=== PATIENT | male | born 1990 | race Caucasian/White ===

== ENCOUNTER 2020-11-29 10:35 | Day surgery (SDC) | payer OTHER ==
[~2020-11-29] VITALS: Ht 175.3 cm; Wt 94.2 kg
[2020-11-29] MEDS ORDERED: PROPOFOL 10 MG/ML, 20ML ONE (11:42)
--- NOTE | 2020-11-29 11:48 | NUR ---
PROCEDURAL SEDATION SET UP IN ROOM . PT PLACED ON ALL MONITORING EQUIPMENT MD AT BEDSIDE. REFER TO SEDATION PACKET FOR INTRAPROCEDURE INFO.
[2020-11-29] MEDS ORDERED: MIDAZOLAM 1 MG/ML, 2ML ONE ×2 (11:58→17:04)
[2020-11-29] MEDS ORDERED: FENTANYL PF 100 MCG/2ML ONE (11:58)
--- NOTE | 2020-11-29 12:14 | NUR ---
DURING INITIAL SEDATION PT EXPERIENCE UNDISIRED REACTION TO PROPOFOL OF MYOCLONIS. PT RECOVERED PARTIALLY FROM PROPOFOL AND ADMIN OF VERSED INITIATED AT MD REQUEST. DESPITE 2 ATTEMPTS TO RETRIEVE OBJECT MD WAS UNSUCCESSFUL. PT TO BE RECOVERED AND SURGERY WAS PAGED.
[2020-11-29] MEDS ORDERED: MIDAZOLAM 1 MG/ML, 2ML IVPush ONE (13:00)
[2020-11-29] MEDS ORDERED: PROPOFOL 10 MG/ML, 20ML IVPush ONE (13:00)
--- NOTE | 2020-11-29 13:02 | NUR ---
PT READY FOR SURGERY. PT HAS BEEN NPO SINCE 9 AM THIS MORNING. [employer] FOR BREAKFAST
--- NOTE | 2020-11-29 13:05 | NUR ---
PREVIOUS NOTE MADE BY THIS RN
[2020-11-29] MEDS ORDERED: D5%-0.45NACL+KCL 20MEQ 1,000 ML IV SCH ×2 (13:30)
--- NOTE | 2020-11-29 14:12 | NUR ---
ASSUMED CARE FROM [facility]. PT RESTING IN [facility] AT [facility] TIME, MONITORING IN PLACE. PT REPORTS NO NEEDS, WILL CONTINUE TO MONITOR.
[2020-11-29 15:43] VITALS: BP 109/66
--- NOTE | 2020-11-29 15:43 | NUR ---
PT RESTING IN [facility] AT THIS TIME, MONITORING IN PLACE.
[2020-11-29] MEDS ORDERED: FENTANYL PF 250 MCG/5ML ONE (17:04)
[2020-11-29] MEDS ORDERED: PROPOFOL 50 ML ONE (17:04)
[2020-11-29] MEDS ORDERED: ONDANSETRON 2MG/ML, 2ML ONE (17:53)
[2020-11-29] MEDS ORDERED: ROCURONIUM 10MG/ML,5ML ONE (17:53)
[2020-11-29] MEDS ORDERED: SUCCINYLCHOLINE 20 MG/ML, 10ML ONE (17:53)
[2020-11-29] MEDS ORDERED: DEXAMETHASONE 4 MG/ML, 1ML ONE (17:53)
[2020-11-29] MEDS ORDERED: SUGAMMADEX 200 MG/2 ML IVPush ONE (18:18)
[2020-11-29] MEDS ORDERED: EPHEDRINE 50 MG/ML, 1ML IVPush PRN (18:30)
[2020-11-29] MEDS ORDERED: ONDANSETRON 2MG/ML, 2ML IVPush PRN (18:30)
[2020-11-29] MEDS ORDERED: morphine SULFATE 10 MG/ML, 1ML IVPush PRN (18:30)
[2020-11-29] MEDS ORDERED: PROMETHAZINE 25 MG/ML, 1ML IVPush PRN (18:30)
[2020-11-29] MEDS ORDERED: ACETAMINOPHEN 325 MG TABLET PO PRN (18:30)
[2020-11-29] MEDS ORDERED: LABETALOL 5MG/ML, 20ML IV PRN (18:30)
[2020-11-29] MEDS ORDERED: MEPERIDINE/PF 25MG/0.5ML IVPush PRN (18:30)
[2020-11-29] MEDS ORDERED: EPHEDRINE 50 MG/ML, 1ML IM PRN (18:30)
[2020-11-29] MEDS ORDERED: OXYcodone 5 MG/5 ML ORAL.SOL UDC PO PRN (18:30)
[2020-11-29] MEDS ORDERED: DIPHENHYDRAMINE 50 MG/ML, 1ML IVPush PRN (18:30)
[2020-11-29] MEDS ORDERED: FENTANYL PF 100 MCG/2ML IV PRN (18:30)
[2020-11-29] MEDS ORDERED: DIAZEPAM 5 MG/ML, 2ML IVPush PRN (18:30)
== END 2020-11-29 20:30 | disposition home or self-care (01) ==
LOC: ED 12:37 → EDSTATUS 13:42 → EDIP 15:54 → UNDOADMIN 15:54 → OUT 18:30 → ED 20:30
PROVIDERS: ATTEND Emergency Medicine
DX: T18.5XXA Foreign body in anus and rectum, initial encounter (principal); K52.9 Noninfective gastroenteritis and colitis, unspecified; K62.89 Other specified diseases of anus and rectum; Z20.822 Contact with and (suspected) exposure to COVID-19; Z79.899 Other long term (current) drug therapy; Z88.2 Allergy status to sulfonamides; X58.XXXA Exposure to other specified factors, initial encounter; Y93.89 Activity, other specified; Y92.89 Other specified places as the place of occurrence of the external cause; Y99.8 Other external cause status
CPT/HCPCS: 45332; 74018; 87635; 93005; 96374; 99285; J0330; J1100; J2250; J2405; J2704; J3010